=== PATIENT | female | born 1970 | race African-American/Black ===

== ENCOUNTER 2021-01-15 12:30 | Inpatient (IN) | payer BC ==
[2021-01-15 14:46] VITALS: BMI 20.9
[2021-01-15] MEDS ORDERED: MAGNESIUM HYDROX 2400MG/30ML ORAL SUSPENSION 30 ML CUP PO PRN (16:39)
[2021-01-15] MEDS ORDERED: ONDANSETRON *ODT* 4 MG TABLET SL PRN (16:39)
[2021-01-15] MEDS ORDERED: MAG HYDROX/AL HYDROX/SIMETH 30 ML UNIT-DOSE CUP PO PRN (16:39)
[2021-01-15] MEDS ORDERED: ACETAMINOPHEN 325 MG TABLET (FP) PO PRN ×2 (16:39)
[2021-01-15] MEDS ORDERED: IBUPROFEN 400 MG TABLET (FP) PO PRN (16:39)
[2021-01-15] MEDS ORDERED: MAGNESIUM CITRATE 300 ML BOTTLE PO PRN (16:39)
[2021-01-15] MEDS ORDERED: BISMUTH SUBSALICYLATE 524 MG/30 ML UD PO PRN (16:39)
[2021-01-15] MEDS ORDERED: hydrOXYzine PAMOATE 25 MG CAPSULE (FP) PO PRN (16:39)
[2021-01-15] MEDS ORDERED: MENTHOL/PHENOL 1 EACH UD MM PRN (16:39)
[2021-01-15] MEDS ORDERED: diazePAM 5 MG TABLET PO PRN (16:41)
[2021-01-15] MEDS: diazePAM 5 MG TABLET PO SCH ×2 (18:22→22:44)
[2021-01-15] MEDS ORDERED: AMITRIPTYLINE HCL 25 MG TABLET PO ONE (22:00)
[2021-01-15] MEDS: INSULIN (NOVOLOG) ASPART 100 UNITS/ML 10ML VIAL SQ SCH (22:14)
[2021-01-15] MEDS ORDERED: INSULIN (NOVOLOG) ASPART 100 UNITS/ML 10ML VIAL ONE (22:44)
[2021-01-15] MEDS: THIAMINE HCL 100 MG TABLET (FP) PO SCH (22:45)
[2021-01-15] MEDS: GABAPENTIN 300 MG CAPSULE PO SCH (22:45)
[2021-01-15] MEDS: MELATONIN 5 MG TABLETS PO SCH (22:45)
[2021-01-16] MEDS: diazePAM 5 MG TABLET PO SCH ×4 (06:38→22:23)
[2021-01-16] MEDS: GABAPENTIN 300 MG CAPSULE PO SCH ×3 (06:38→22:20)
[2021-01-16] MEDS: INSULIN (NOVOLOG) ASPART 100 UNITS/ML 10ML VIAL SQ SCH ×3 (06:42→22:25)
[2021-01-16] MEDS ORDERED: METHADONE HCL 40 MG DISPERSABLE TABLET PO ONE (10:15)
[2021-01-16] MEDS: ASPIRIN 81 MG CHEWABLE TABLETS PO SCH (10:19)
[2021-01-16] MEDS: PRENATAL VITAMINS W/ FOLIC ACID TABLET (FP) PO SCH (10:20)
[2021-01-16] MEDS: NICOTINE 7 MG/24 HOURS TOPICAL PATCH TD SCH (10:20)
[2021-01-16 11:01] LABS: HEMATOCRIT 38.4 % (32.4-45.2); HEMOGLOBIN 12.7 GM/dL (10.7-15.3); MCH 30.5 pg (25.7-33.7); MCHC 33.1 g/dl (32.0-36.0); MEAN CELL VOLUME 92.3 fl (80-96); MEAN PLT VOLUME 9.7 fl (7.5-11.1); PLATELET COUNT 180 K/MM3 (134-434); RBC 4.16 M/mm3 (3.60-5.2); RDW 15.2 % (11.6-15.6)
[2021-01-16 11:12] LABS: ALBUMIN 2.8 g/dl (3.4-5.0); BLOOD UREA NITROGEN 10.6 mg/dL (7-18); CALCIUM 9.4 mg/dL (8.5-10.1)
[2021-01-16 11:15] LABS: CREATININE 0.8 mg/dL (0.55-1.3)
[2021-01-16 11:17] LABS: BILIRUBIN,TOTAL 0.4 mg/dL (0.2-1); TOT PROT 5.6 g/dl (6.4-8.2)
[2021-01-16] MEDS: INSULIN (LEVEMIR) 100 UNITS/ML UNITS SQ SCH (12:41)
[2021-01-16] MEDS: AMITRIPTYLINE HCL 25 MG TABLET PO SCH (22:22)
[2021-01-16] MEDS: MELATONIN 5 MG TABLETS PO SCH (22:23)
[2021-01-16] MEDS: THIAMINE HCL 100 MG TABLET (FP) PO SCH (22:23)
[2021-01-17] MEDS: METHADONE HCL 40 MG DISPERSABLE TABLET PO SCH (06:35)
[2021-01-17] MEDS: GABAPENTIN 300 MG CAPSULE PO SCH ×3 (06:35→22:03)
[2021-01-17] MEDS: diazePAM 5 MG TABLET PO SCH ×3 (06:36→22:03)
[2021-01-17] MEDS: INSULIN (NOVOLOG) ASPART 100 UNITS/ML 10ML VIAL SQ SCH ×3 (08:13→22:03)
[2021-01-17] MEDS: PRENATAL VITAMINS W/ FOLIC ACID TABLET (FP) PO SCH (10:23)
[2021-01-17] MEDS: ASPIRIN 81 MG CHEWABLE TABLETS PO SCH (10:23)
[2021-01-17] MEDS: NICOTINE 7 MG/24 HOURS TOPICAL PATCH TD SCH (10:24)
[2021-01-17] MEDS: INSULIN (LEVEMIR) 100 UNITS/ML UNITS SQ SCH (10:27)
[2021-01-17] MEDS: THIAMINE HCL 100 MG TABLET (FP) PO SCH (22:03)
[2021-01-17] MEDS: MELATONIN 5 MG TABLETS PO SCH (22:06)
[2021-01-17] MEDS: AMITRIPTYLINE HCL 25 MG TABLET PO SCH (22:07)
[2021-01-18] MEDS: GABAPENTIN 300 MG CAPSULE PO SCH ×3 (06:01→22:46)
[2021-01-18] MEDS: diazePAM 5 MG TABLET PO SCH ×2 (06:02→17:54)
[2021-01-18] MEDS: METHADONE HCL 40 MG DISPERSABLE TABLET PO SCH (06:02)
[2021-01-18] MEDS: INSULIN (NOVOLOG) ASPART 100 UNITS/ML 10ML VIAL SQ SCH ×3 (06:05→22:48)
[2021-01-18] MEDS: PRENATAL VITAMINS W/ FOLIC ACID TABLET (FP) PO SCH (10:04)
[2021-01-18] MEDS: ASPIRIN 81 MG CHEWABLE TABLETS PO SCH (10:04)
[2021-01-18] MEDS: NICOTINE 7 MG/24 HOURS TOPICAL PATCH TD SCH (10:05)
[2021-01-18] MEDS: INSULIN (LEVEMIR) 100 UNITS/ML UNITS SQ SCH (11:24)
[2021-01-18 14:08] LABS: SARS-CoV-2 NAA Not Detected (Not Detected)
[2021-01-18] MEDS: THIAMINE HCL 100 MG TABLET (FP) PO SCH (22:46)
[2021-01-18] MEDS: MELATONIN 5 MG TABLETS PO SCH (22:47)
[2021-01-18] MEDS: AMITRIPTYLINE HCL 25 MG TABLET PO SCH (22:47)
[2021-01-19] MEDS ORDERED: diazePAM 5 MG TABLET PO ONE (06:00)
[2021-01-19] MEDS: METHADONE HCL 40 MG DISPERSABLE TABLET PO SCH (06:42)
[2021-01-19] MEDS: GABAPENTIN 300 MG CAPSULE PO SCH (06:43)
[2021-01-19] MEDS: INSULIN (NOVOLOG) ASPART 100 UNITS/ML 10ML VIAL SQ SCH (06:48)
[2021-01-19 09:57] VITALS: BP 137/69; PULSE 86; TEMP 98.3
== END 2021-01-19 10:20 | disposition home or self-care (01) | DRG 773 ==
LOC: YASAS 12:30 → Y6N 16:07
PROVIDERS: ADMIT Allergy & Immunology; ATTEND Allergy & Immunology
PROC: HZ2ZZZZ Detoxification Services for Substance Abuse Treatment (ICD-10-PCS; principal; 2021-01-15)
DX: F10.230 Alcohol dependence with withdrawal, uncomplicated (principal); F11.20 Opioid dependence, uncomplicated; F10.220 Alcohol dependence with intoxication, uncomplicated; F17.210 Nicotine dependence, cigarettes, uncomplicated; F10.282 Alcohol dependence with alcohol-induced sleep disorder; E11.42 Type 2 diabetes mellitus with diabetic polyneuropathy; Z79.4 Long term (current) use of insulin; J45.909 Unspecified asthma, uncomplicated; R76.11 Nonspecific reaction to tuberculin skin test without active tuberculosis; Z20.2 Contact with and (suspected) exposure to infections with a predominantly sexual mode of transmission; Z56.0 Unemployment, unspecified
CPT/HCPCS: 36415; 71046-TC-FY; 80053; 82962; 85027; 86593; 86780; C9803; U0003; U0005